=== PATIENT | male | born 1980 | race Caucasian/White ===

== ENCOUNTER 2020-07-04 10:25 | Outpatient (CLI) | payer OTHER, SELFPAY ==
[2020-07-04 11:54] LABS: SARS-CoV-2 Ag Negative (Negative)
[2020-07-05 19:41] LABS: SARS-CoV-2 RNA PCR Positive
== END 2020-07-04 10:26 | disposition home or self-care (01) ==
PROVIDERS: PCP Internal Medicine; Visit Provider Internal Medicine
DX: U07.1 COVID-19 (principal)
CPT/HCPCS: 87426; C9803; U0003; U0005

== ENCOUNTER 2020-10-14 14:20 | Emergency (ER) | payer OTHER, SELFPAY ==
--- NOTE | 2020-10-14 22:13 | ED.LOWEXIN ---
HPI - Extremity Injury (Lower) General Stated Complaint: L lower leg dog bite History of Present Illness HPI Narrative: THis gentleman came in and was registered at 14:20 pm. He evidently wanted to be seen regarding a dog bit to his leg. While in the waiting room he decided to leave without being seen. I did not evaluate this patient. Related Data Allergies Allergy/AdvReac Type Severity Reaction Status Date / Time No Known Allergies Allergy Unverified 02/04/14 13:27
== END 2020-10-14 14:21 | disposition left against medical advice (07) ==
LOC: CHSED 14:23
PROVIDERS: Emergency Provider Emergency Medicine; PCP Internal Medicine
DX: Z53.8 Procedure and treatment not carried out for other reasons (principal)
CPT/HCPCS: 99199

== ENCOUNTER 2021-08-03 13:59 | Outpatient (CLI) | payer OTHER, SELFPAY ==
--- NOTE | ~2021-08-03 | US_ITS ---
US renal BI 08/03/2021 14:16 Procedure: Realtime transabdominal ultrasound of the kidneys and bladder. Indication: Bladder pain. Urinary frequency. Comparison: No prior studies for comparison. Findings: Renal echotexture is normal bilaterally without hydronephrosis, contour deforming mass or r enal calculus. The right kidney measures 9.8 cm and left kidney measures 10.9 cm. Bladder within nor mal limits. Prostate gland is enlarged. Impression: 1: Unremarkable renal ultrasound. No stones, masses or hydronephrosis. Reviewed, dictated and finalized at location B. Impression: 1: Unremarkable renal ultrasound. No stones, masses or hydronephrosis.
== END 2021-08-03 14:00 | disposition home or self-care (01) ==
LOC: CHSIMG 14:01
PROVIDERS: PCP Internal Medicine; Visit Provider Nurse Practitioner Family
DX: R35.0 Frequency of micturition (principal); R39.89 Other symptoms and signs involving the genitourinary system
CPT/HCPCS: 76775